=== PATIENT | female | born 1980 | race Caucasian/White ===

== ENCOUNTER → 2017-07-24 | Outpatient (CLI) | payer OTHER ==
[~2017-07-24] MED LIST: URSO300C27 PO
== END | disposition home or self-care (01) ==
LOC: CFH 07-09 06:53
PROVIDERS: ATTEND Internal Medicine Gastroenterology
DX: R16.1 Splenomegaly, not elsewhere classified (principal); K74.3 Primary biliary cirrhosis
CPT/HCPCS: 76700